=== PATIENT | female | born 1965 | race Caucasian/White ===

== ENCOUNTER 2017-05-03 19:15 | Emergency (ER) | payer SELFPAY ==
[2017-05-03] MEDS ORDERED: NORMAL SALINE 1000 ML 1,000 ML IV ONE (20:20)
[2017-05-03] MEDS ORDERED: ACETAMINOPHEN 325 MG TABLET PO ONE (20:20)
--- NOTE | 2017-05-03 20:21 | ER Document Report ---
ED Medical Screen (RME) - General Chief Complaint: Foot Pain Stated Complaint: SWOLLEN FOOT,FEVER Time Seen by Provider: 05/03/17 20:20 Mode of Arrival: Ambulatory Information source: Patient Notes: Patient reports approximately 3 days of left foot pain swelling and redness. She also believes she has had a fever and chills. She states she has had a similar episode previously with a "spider bite". TRAVEL OUTSIDE OF THE [place] IN LAST 30 DAYS: No Past Medical History Endocrine Medical History: Denies: Hx Diabetes Mellitus Type 1, Hx Diabetes Mellitus Type 2 Renal/ Medical History: Denies: Hx Peritoneal Dialysis Past Surgical History: Reports: Hx Appendectomy - Immunizations Hx Diphtheria, Pertussis, Tetanus Vaccination: No Physical Exam - Vital signs Vitals: Temp Pulse Resp BP Pulse Ox 100.3 F 105 H 18 125/89 H 94 05/03/17 19:28 05/03/17 19:28 05/03/17 19:28 05/03/17 19:28 05/03/17 19:28 Course - Vital Signs Vital signs: Temp Pulse Resp BP Pulse Ox 100.3 F 105 H 18 125/89 H 94 05/03/17 19:28 05/03/17 19:28 05/03/17 19:28 05/03/17 19:28 05/03/17 19:28
[2017-05-03 21:15] LABS: ABSOLUTE LYMPHOCYTES (AUTO) 0.8 10^3/uL (0.5-4.7); ABSOLUTE MONOCYTES (AUTO) 0.9 10^3/uL (0.1-1.4); ABSOLUTE NEUT (AUTO) 8.8 10^3/uL (1.7-8.2); BASOPHILS % (AUTO) 0.4 % (0-2); EOSINOPHILS % (AUTO) 0.1 % (0-6); HEMATOCRIT 43.2 % (36.0-47.0); HEMOGLOBIN 14.9 g/dL (12.0-15.5); HGB HCT DIFFERENCE 1.5; MEAN CORPUSCULAR HEMOGLOBIN 31.6 pg (27.0-33.4); MEAN CORPUSCULAR HGB CONC 34.5 g/dL (32.0-36.0); MEAN CORPUSCULAR VOLUME 92 fl (80-97); MONOCYTES % (AUTO) 8.1 % (3-13); RED BLOOD COUNT 4.71 10^6/uL (3.72-5.28); RED CELL DISTRIBUTION WIDTH 13.1 % (11.5-14.0); SEGMENTED NEUTROPHILS % (AUTO) 83.4 % (42-78); WHITE BLOOD COUNT 10.5 10^3/uL (4.0-10.5)
[2017-05-03 21:20] LABS: VENOUS BLOOD HCO3 24.2 mmol/L (20-32); VENOUS BLOOD PCO2 34.5 mmHg (35-63); VENOUS BLOOD PH 7.46 (7.30-7.42)
[2017-05-03 21:34] LABS: ALANINE AMINOTRANSFERASE 30 U/L (9-52); ALBUMIN 4.7 g/dL (3.5-5.0); ALKALINE PHOSPHATASE 94 U/L (38-126); ANION GAP 12 (5-19); ASPARTATE AMINO TRANSFERASE 21 U/L (14-36); BILIRUBIN,DIRECT 0.5 mg/dL (0.0-0.4); BILIRUBIN,TOTAL 1.1 mg/dL (0.2-1.3); BLOOD UREA NITROGEN 10 mg/dL (7-20); CALCIUM 9.9 mg/dL (8.4-10.2); CARBON DIOXIDE 26 mmol/L (22-30); CHLORIDE 101 mmol/L (98-107); CREATININE RESULT 0.59 mg/dL (0.52-1.25); GLUCOSE 129 mg/dL (75-110); POTASSIUM 3.4 mmol/L (3.6-5.0); SODIUM 138.6 mmol/L (137-145); TOTAL PROTEIN 8.8 g/dL (6.3-8.2)
[2017-05-03 21:40] LABS: APPEARANCE,URINE SLIGHTLY-CLOUDY; BILIRUBIN,URINE NEGATIVE (NEGATIVE); CALCIUM OXALATE CRYSTALS,URINE MODERATE /HPF; GLUCOSE, URINE NEGATIVE (NEGATIVE); KETONES,URINE 20 mg/dL (NEGATIVE); LEUKOCYTE ESTERASE,URINE SMALL (NEGATIVE); NITRITE,URINE NEGATIVE (NEGATIVE); PROTEIN,URINE 30 mg/dL (NEGATIVE); URINE SPECIFIC GRAVITY 1.019
--- NOTE | 2017-05-03 21:56 | RADIOLOGY REPORT (SQ) ---
EXAM DESCRIPTION: FOOT LEFT COMPLETE COMPLETED DATE/TIME: 05/03/2017 9:44 pm REASON FOR STUDY: eval osteo COMPARISON: None. NUMBER OF VIEWS: Three views. TECHNIQUE: AP, lateral and oblique without weight bearing radiographic images acquired of the left f oot. LIMITATIONS: None. FINDINGS: MINERALIZATION: Normal. BONES: No acute fracture or dislocation. No worrisome bone lesions. No significant osteophytes. JOINTS: No erosions. No gypsy-articular osteopenia. No chondrocalcinosis. SOFT TISSUES: No swelling. No calcifications. OTHER: No other significant finding. IMPRESSION: NEGATIVE STUDY OF THE LEFT FOOT. NO EXPLANATION FOR PAIN. TECHNICAL DOCUMENTATION: JOB ID: [id number] [employer]- All Rights Reserved
--- NOTE | 2017-05-03 22:44 | ER Document Report ---
ED General - General Chief Complaint: Foot Pain Stated Complaint: SWOLLEN FOOT,FEVER Time Seen by Provider: 05/03/17 20:20 Mode of Arrival: Ambulatory Notes: Patient is a 52-year-old female without past medical history presents with several days of left foot pain and swelling. States that she believes she may have been bit by several insects several days ago and since that time is developed progressive worsening of erythema and swelling of the left lower extremity involving the foot and ankle. She has a history of similar symptoms in the past of unclear etiology. Notes that she is felt generally unwell since this area started but denies any fever. She has not seen a primary care doctor regarding today's concerns. Nothing improves or worsens her symptoms. She has not noticed any progression of the erythema over the last 48 hours. TRAVEL OUTSIDE OF THE [place] IN LAST 30 DAYS: No - Related Data Allergies/Adverse Reactions: codeine Allergy (Verified 05/03/17 20:22) methocarbamol [From Robaxin] Allergy (Verified 05/03/17 20:22) mushroom Allergy (Verified 05/03/17 20:22) Sulfa (Sulfonamide Antibiotics) Allergy (Verified 05/03/17 20:22) tetracycline Allergy (Verified 05/03/17 20:22) Home Medications: Current Home Medications Ibuprofen 200 mg PO Q6H PRN 05/03/17 [History] Past Medical History - General Information source: Patient - Social History Smoking Status: Never Smoker Chew tobacco use (# tins/day): No Frequency of alcohol use: None Drug Abuse: None Lives with: Family Family History: Reviewed & Not Pertinent Patient has suicidal ideation: No Patient has homicidal ideation: No Endocrine Medical History: Denies: Hx Diabetes Mellitus Type 1, Hx Diabetes Mellitus Type 2 Renal/ Medical History: Denies: Hx Peritoneal Dialysis Past Surgical History: Reports: Hx Appendectomy - Immunizations Hx Diphtheria, Pertussis, Tetanus Vaccination: No Review of Systems - Review of Systems Notes: Constitutional: Negative for fever. HENT: Negative for sore throat. Eyes: Negative for visual changes. Cardiovascular: Negative for chest pain. Respiratory: Negative for shortness of breath. Gastrointestinal: Negative for abdominal pain, vomiting or diarrhea. Genitourinary: Negative for dysuria. Musculoskeletal: Positive for left foot pain Skin: Positive for rash. Neurological: Negative for headaches, weakness or numbness. 10 point ROS negative except as marked above and in HPI. Physical Exam - Vital signs Vitals: Temp Pulse Resp BP Pulse Ox 100.3 F 105 H 18 125/89 H 94 05/03/17 19:28 05/03/17 19:28 05/03/17 19:28 05/03/17 19:28 05/03/17 19:28 Interpretation: Tachycardic Notes: PHYSICAL EXAMINATION: GENERAL: Well-appearing, well-nourished and in no acute distress. HEAD: Atraumatic, normocephalic. EYES: sclera anicteric, conjunctiva are normal. ENT: Moist mucous membranes. NECK: Normal range of motion LUNGS: Normal work of breathing HEART: 2+ DP pulses bilaterally. EXTREMITIES: no pitting or edema. No cyanosis. NEUROLOGICAL: No focal neurological deficits. Moves all extremities spontaneously and on command. PSYCH: Normal mood, normal affect. SKIN: Warm, Dry, normal turgor, there is diffuse erythema and swelling over the dorsal surface of the left foot as well as proximally one half of the medial aspect of the plantar surface of the foot. No fluctuance. Course - Re-evaluation Re-evalutation: 05/03/17 22:39 Patient presents with a globally swollen left foot with the entire area of the dorsum of the foot being erythematous with associated patches of vesicular lesions. Appears to be most consistent with an allergic origin similar to her prior presentation 2015. However cannot definitively exclude an infectious etiology. Patient's vitals are within normal limits, labs obtained in triage are all unremarkable. An x-ray is without any evidence of acute osteomyelitis who wished to have an overall very low clinical suspicion. Will start patient on cephalexin, prednisone, antihistamines and recommend close outpatient follow- up. At this time will discharge with return precautions and follow-up recommendations. Verbal discharge instructions given a the bedside and opportunity for questions given. Medication warnings reviewed. Patient is in agreement with this plan and has verbalized understanding of return precautions and the need for primary care follow-up in the next 24-72 hours. - Vital Signs Vital signs: Temp Pulse Resp BP Pulse Ox 97.8 F 83 18 126/65 H 94 05/03/17 22:48 05/03/17 22:48 05/03/17 22:48 05/03/17 22:48 05/03/17 22:48 - Laboratory Result Diagrams: 05/03/17 20:30 05/03/17 20:30 Laboratory results interpreted by me: 05/03/17 05/03/17 05/03/17 20:30 20:30 20:30 Seg Neutrophils % 83.4 H Lymphocytes % 8.0 L Absolute Neutrophils 8.8 H VBG pH 7.46 H VBG pCO2 34.5 L Potassium 3.4 L Glucose 129 H Direct Bilirubin 0.5 H Total Protein 8.8 H Urine Protein Urine Ketones Urine Urobilinogen Ur Leukocyte Esterase Urine Ascorbic Acid 05/03/17 20:30 Seg Neutrophils % Lymphocytes % Absolute Neutrophils VBG pH VBG pCO2 Potassium Glucose Direct Bilirubin Total Protein Urine Protein 30 H Urine Ketones 20 H Urine Urobilinogen 4.0 H Ur Leukocyte Esterase SMALL H Urine Ascorbic Acid 20 H - Diagnostic Test Radiology reviewed: Image reviewed, Reports reviewed Radiology results interpreted by me: 05/03/17 22:40 Left foot x-ray: No acute infectious process or gas-forming infection Discharge - Discharge Clinical Impression: Left foot pain, Cellulitis of foot, left Condition: Good Disposition: HOME, SELF-CARE Additional Instructions: The rash is likely due to infection vs an allergic reaction of your skin. You need to take the antibiotics, steroids, and antihistamines as prescribed. Do not stop even if the rash goes away until you have completed all the antibiotics. You should also return if you develop fevers with temperature greater than 101, persistent vomiting, worsening pain, or have any other symptoms that are concerning to you. Prescriptions: Cephalexin Monohydrate [Keflex 500 mg Capsule] 500 mg PO Q6H 7 Days #28 capsule Cetirizine HCl [24Hour Allergy] 10 mg PO DAILY #30 tablet Prednisone [Deltasone 20 mg Tablet] 3 tab PO DAILY 5 Days tablet Forms: Return to Work Referrals: LOCALMD,NO [Primary Care Provider] - Follow up as needed
[2017-05-03] MEDS ORDERED: PREDNISONE 20 MG TABLET PO ONE (22:46)
[2017-05-03] MEDS ORDERED: CEPHALEXIN 500 MG CAPSULE PO ONE (22:46)
[2017-05-03 22:49] VITALS: BP 126/65
== END 2017-05-03 23:15 | disposition home or self-care (01) ==
LOC: ER 19:15
DX: L03.116 Cellulitis of left lower limb (principal); E11.9 Type 2 diabetes mellitus without complications; M79.672 Pain in left foot; R00.0 Tachycardia, unspecified; Z88.5 Allergy status to narcotic agent; Z88.1 Allergy status to other antibiotic agents; Z91.018 Allergy to other foods; Z88.2 Allergy status to sulfonamides
CPT/HCPCS: 99283; 36415; 87040; 87086; 85025; 80053; 81001; 82803; 83605; 73630; J7512; J7030

== ENCOUNTER 2020-08-07 22:05 | Emergency (ER) | payer BC ==
[2020-08-07] MEDS ORDERED: ONDANSETRON 4 MG TAB.RAPDIS PO ONE (23:08)
[2020-08-07] MEDS ORDERED: KETOROLAC TROMETHAMINE INJ/PF 30 MG/1 ML SDV IV ONE (23:08)
--- NOTE | 2020-08-07 23:08 | ER Document Report ---
ED Medical Screen (RME) - General Stated Complaint: SEVERE BACK PAIN AND VOMITTING Time Seen by Provider: 08/07/20 23:06 Notes: Patient presents complaining of right flank pain that started 5 PM this evening. Patient does report nausea and vomiting. Patient denies any fever. Patient reports voiding small amounts of urine. I have greeted and performed a rapid initial assessment of this patient. A comprehensive ED assessment and evaluation of the patient, analysis of test results and completion of the medical decision making process will be conducted by additional ED providers. TRAVEL OUTSIDE OF THE [place] IN LAST 30 DAYS: No - Related Data Allergies/Adverse Reactions: codeine Allergy (Verified 05/03/17 20:22) methocarbamol [From Robaxin] Allergy (Verified 05/03/17 20:22) mushroom Allergy (Verified 05/03/17 20:22) Sulfa (Sulfonamide Antibiotics) Allergy (Verified 05/03/17 20:22) tetracycline Allergy (Verified 05/03/17 20:22) Past Medical History Endocrine Medical History: Denies: Hx Diabetes Mellitus Type 1, Hx Diabetes Mellitus Type 2 Renal/ Medical History: Denies: Hx Peritoneal Dialysis Past Surgical History: Reports: Hx Appendectomy - Immunizations Hx Diphtheria, Pertussis, Tetanus Vaccination: No Physical Exam - Vital signs Vitals: Temp Pulse Resp BP Pulse Ox 97.5 F 55 L 22 H 148/86 H 100 08/07/20 22:18 08/07/20 22:18 08/07/20 22:18 08/07/20 22:18 08/07/20 22:18 - Back Back: CVA tenderness - Right Course - Vital Signs Vital signs: Temp Pulse Resp BP Pulse Ox 97.5 F 55 L 22 H 148/86 H 100 08/07/20 22:18 08/07/20 22:18 08/07/20 22:18 08/07/20 22:18 08/07/20 22:18
[2020-08-08 00:27] LABS: HEMATOCRIT 38.5 % (36.0-47.0); HEMOGLOBIN 13.2 g/dL (12.0-15.5); MEAN CORPUSCULAR HEMOGLOBIN 31.1 pg (27.0-33.4); MEAN CORPUSCULAR HGB CONC 34.3 g/dL (32.0-36.0); MEAN CORPUSCULAR VOLUME 91 fl (80-97); PLATELET COUNT 189 10^3/uL (150-450); RED BLOOD COUNT 4.25 10^6/uL (3.72-5.28); RED CELL DISTRIBUTION WIDTH 12.6 % (11.5-14.0); WHITE BLOOD COUNT 14.6 10^3/uL (4.0-10.5)
[2020-08-08 00:36] LABS: ALBUMIN 4.2 g/dL (3.5-5.0); ALKALINE PHOSPHATASE 101 U/L (38-126); ANION GAP 8 (5-19); ASPARTATE AMINO TRANSFERASE 21 U/L (14-36); BILIRUBIN,DIRECT 0.1 mg/dL (0.0-0.4); BILIRUBIN,TOTAL 0.6 mg/dL (0.2-1.3); BLOOD UREA NITROGEN 14 mg/dL (7-20); CALCIUM 9.6 mg/dL (8.4-10.2); CARBON DIOXIDE 26 mmol/L (22-30); CHLORIDE 104 mmol/L (98-107); GLUCOSE 181 mg/dL (75-110); POTASSIUM 3.9 mmol/L (3.6-5.0); TOTAL PROTEIN 7.4 g/dL (6.3-8.2)
[2020-08-08 01:24] LABS: ABSOLUTE LYMPHOCYTES# (MANUAL) 0.1 10^3/uL (0.5-4.7); ABSOLUTE MONOCYTES # (MANUAL) 0.4 10^3/uL (0.1-1.4); BASOPHILS % (MANUAL) 0 % (0-2); EOSINOPHILS % (MANUAL) 0 % (0-6); LYMPHOCYTES % (MANUAL) 1 % (13-45); MONOCYTES % (MANUAL) 3 % (3-13); SEGMENTED NEUTROPHILS % (MAN) 96 % (42-78); TOTAL CELLS COUNTED 100
[2020-08-08 01:25] LABS: ANISOCYTOSIS SLIGHT; OVALOCYTES SLIGHT; PLATELET COMMENT ADEQUATE; TOXIC GRANULATION 1+
[2020-08-08 02:56] LABS: APPEARANCE,URINE SLIGHTLY-CLOUDY; BILIRUBIN,URINE NEGATIVE (NEGATIVE); COLOR,URINE YELLOW; GLUCOSE, URINE NEGATIVE (NEGATIVE); KETONES,URINE 80 mg/dL (NEGATIVE); LEUKOCYTE ESTERASE,URINE TRACE (NEGATIVE); NITRITE,URINE NEGATIVE (NEGATIVE); PROTEIN,URINE 30 mg/dL (NEGATIVE); URINE SPECIFIC GRAVITY 1.026
--- NOTE | 2020-08-08 03:01 | RADIOLOGY REPORT (SQ) ---
EXAM DESCRIPTION: CT ABDOMEN PELVIS WITHOUT IV CONTRAST COMPLETED DATE/TME: 08/08/2020 02:22 CLINICAL HISTORY: 55 years Female, R flank pain Comparison: None. Technique: No contrast. Coronal and sagittal reformat. This exam was performed according to our departmental dose-optimization program, which includes automated exposure control, adjustment of the mA and/or kV according to patient size and/or use of iterative reconstruction technique.[facility]: Dose Right [facility]: CareDose [facility]: Dose Right [facility]: Teradose 4D [facility]: Loyalty Lab LIMITATIONS: None Findings: 0.6 cm bilobed/stacked right proximal ureteral stone with mild right hydronephrosis. 4.6 cm right adnexal cystic lesion. Differential diagnosis includes neoplasm. Recommend pelvic ultrasound Calcification associated with the mitral valve. Imaging note: 1/2 of mitral valve calcifications have been shown to be associated with mitral stenosis. Colonic diverticulosis. 0.2 cm left renal stone. Moderate hiatal hernia. Coronary arterial calcification. Atherosclerotic vascular disease. Renal arterial calcification. 0.5 cm grade 1 L4 anterolisthesis. No ascites. No pneumoperitoneum. Appendectomy. No gross evidence of gallbladder inflammation, hepatobiliary obstruction, or portal vein defect. No bowel obstruction. No evidence of abdominal aortic aneurysm. Mild to moderate multilevel, multifactorial spinal canal stenoses. Unenhanced lower thorax, abdominopelvic structures, and musculoskeleton appear otherwise grossly unremarkable. Impression: 1. 0.6 cm bilobed/stacked right proximal ureteral stone with low-grade obstruction. 2. Calcification associated with the mitral valve. Imaging note: 1/2 of mitral valve calcifications have been shown to be associated with mitral stenosis. 3. 4.6 cm right adnexal cystic lesion. Differential diagnosis includes neoplasm. Recommend pelvic ultrasound 4. Moderate hiatal hernia. 5. Coronary arterial calcification. Renal arterial calcification.
[2020-08-08] MEDS ORDERED: MORPHINE SULFATE 10 MG/ML INJ IV ONE (07:52)
[2020-08-08] MEDS ORDERED: NORMAL SALINE 1000 ML 1,000 ML IV ONE (07:52)
[2020-08-08] MEDS ORDERED: METOCLOPRAMIDE HCL INJ/PF 10 MG/2 ML SDV IV ONE (07:53)
--- NOTE | 2020-08-08 07:58 | ER Document Report ---
ED General - General Chief Complaint: Flank Pain Stated Complaint: SEVERE BACK PAIN AND VOMITTING Time Seen by Provider: 08/07/20 23:06 TRAVEL OUTSIDE OF THE [place] IN LAST 30 DAYS: No - HPI Notes: Chief complaint: Right flank pain and vomiting History of present illness: 55-year-old female with history of chronic pain syndrome related to osteoarthritis and disc disease of her upper and lower back but no known prior history of renal stones who presents now with right flank di scom[place] and intermittent nausea and vomiting. Symptoms were of sudden onset around 5 PM yesterday. Intermittent since then. No fever or chills. Presently rates pain 10/10. Radiates down to suprapubic area. - Related Data Allergies/Adverse Reactions: codeine Allergy (Verified 05/03/17 20:22) methocarbamol [From Robaxin] Allergy (Verified 05/03/17 20:22) mushroom Allergy (Verified 05/03/17 20:22) Sulfa (Sulfonamide Antibiotics) Allergy (Verified 05/03/17 20:22) tetracycline Allergy (Verified 05/03/17 20:22) Past Medical History - General Information source: Patient, Relative - Social History Smoking Status: Current Every Day Smoker Chew tobacco use (# tins/day): No Frequency of alcohol use: Occasional Drug Abuse: None Family History: Reviewed & Not Pertinent - Past Medical History Cardiac Medical History: Reports: None Pulmonary Medical History: Reports: None Endocrine Medical History: Denies: Hx Diabetes Mellitus Type 1, Hx Diabetes Mellitus Type 2 Renal/ Medical History: Denies: Hx Kidney Stones, Hx Peritoneal Dialysis Musculoskeletal Medical History: Reports Hx Arthritis, Reports Hx Sciatica Past Surgical History: Reports: Hx Appendectomy - Immunizations Hx Diphtheria, Pertussis, Tetanus Vaccination: No Review of Systems - Review of Systems Notes: Constitutional: Negative for fever. HENT: Negative for sore throat. Eyes: Negative for visual changes. Cardiovascular: Negative for chest pain. Respiratory: Negative for shortness of breath. Gastrointestinal: As per HPI. Genitourinary: As per HPI. No dysuria or gross hematuria. Musculoskeletal: As per HPI. Skin: Negative for rash. Neurological: Negative for headaches, focal weakness. Chronic numbness of both hands related to compression neuropathy associated with cervical disc disease. 10 point ROS negative except as marked above and in HPI. Physical Exam - Vital signs Vitals: Temp Pulse Resp BP Pulse Ox 97.5 F 55 L 22 H 148/86 H 100 08/07/20 22:18 08/07/20 22:18 08/07/20 22:18 08/07/20 22:18 08/07/20 22:18 - Notes Notes: GENERAL: Female patient of approximately stated age appearing restless and in moderate pain. SKIN: Good turgor no rashes. HEAD: Normocephalic atraumatic. EYES: PERRLA. EOMI. Conjunctivae and sclerae clear. EARS: CANALS AND TMS CLEAR. NOSE: CLEAR. MOUTH: Moist mucosa. Good dentition. No stridor or edema. No drooling. NECK: Supple. No masses or thyromegaly. No adenopathy. Carotids 2+ without bruits. No JVD. BACK: Mild right CVA tenderness. CHEST: Respirations unlabored. Breath sounds clear and symmetrical. HEART: Regular rhythm. No murmur gallop or rub. ABDOMEN: Soft nontender without masses, organomegaly or rebound. Bowel sounds normally active. No bruits. GENITALIA: Deferred. EXTREMITIES: No edema. No calf tenderness. Cap refill less than 1.5 seconds. Dorsalis pedis and posterior tibial pulses 3+ and symmetrical. NEUROLOGICAL: GCS 15. Alert and oriented x3. Normal gait. Fluent speech. Cranial nerves II through XII intact. Sensorimotor and cerebellar normal. Normal tone. PSYCHIATRIC: Appropriate affect. Course - Re-evaluation Re-evalutation: 08/08/20 10:12 55-year-old female with new onset what sounded like right-sided renal colic started around 5 PM yesterday. 6 mm stone mid right ureter with mild obstruction confirmed by CT. Creatinine is normal. No fever. Urinalysis positive for microscopic hematuria. Symptoms controlled with IV morphine, IV Zofran and IV normal saline. Patient is tolerating oral fluids and appears stable for outpatient urology follow-up. Findings, clinical impression and plan of treatment have been discussed with patient/family. Understanding of current findings and recommendations has been acknowledged by them and there is agreement regarding disposition and follow-up. - Vital Signs Vital signs: Temp Pulse Resp BP Pulse Ox 98.0 F 58 L 18 136/82 H 99 08/08/20 07:47 08/08/20 07:47 08/08/20 07:47 08/08/20 07:47 08/08/20 07:47 - Laboratory Results Result Diagrams: 08/07/20 23:57 08/07/20 23:57 Laboratory Results Interpreted: 08/07/20 08/07/20 08/08/20 23:57 23:57 02:40 WBC 14.6 H Seg Neuts % (Manual) 96 H Lymphocytes % (Manual) 1 L Abs Neuts (Manual) 14.0 H Abs Lymphs (Manual) 0.1 L Glucose 181 H Urine Protein 30 H Urine Ketones 80 H Urine Blood LARGE H Urine Urobilinogen 2.0 H Ur Leukocyte Esterase TRACE H Critical Laboratory Results Reviewed: Yes Attending or Supervising Physician who Reviewed Labs: SREE STEPHENSON - Radiology Results Radiology Results Interpreted: 08/08/20 08:00 6 mm stone proximal right ureter with mild obstruction per radiologist Critical Radiology Results Reviewed: Yes Attending or Supervising Physician who Reviewed Radiology: SREE STEPHENSON Discharge - Discharge Clinical Impression: Ureterolithiasis with renal colic right Condition: Stable Disposition: HOME, SELF-CARE Additional Instructions: Kidney Stone You are passing or have passed a kidney stone. These stones are usually due to increased calcium or uric acid concentrations in your urine. Stones within the kidney itself are not painful. The pain occurs as the stone leaves the kidney to pass down the long tube, called the ureter, leading to the bladder. If the stone is small, it will usually pass by itself. Most patients can pass the stone at home. You will usually receive medications for pain, nausea or vomiting, and sometimes a medication to assist in passing the kidney stone. However, if the pain is very severe or if vomiting prevents you from taking oral pain medications, you may need to return for further treatment. Drink three or four quarts of fluids per day. You will be given pain medication (if needed) and urine strainers. Strain all your urine to see if the stone passes. If your doctor has asked you to bring the stone in for analysis, return with the stone once it has passed. Return if pain or vomiting become severe, if you develop a high fever, if you are unable to pass your urine, or if other unusual symptoms occur. You have been provided the name of a urologist for follow-up within the next 5 to 7 days. Increase oral fluids. He work note for the next 3 days has been provided for you. Take prescription medications as instructed. Return here as needed for new or worsening symptoms: Pain that is worsening or unimproved Uncontrolled vomiting High fever or shaking chills Overall worsening Prescriptions: Tamsulosin HCl [Flomax 0.4 mg Cap.sr] 0.4 mg PO DAILY #7 cap.sr.24h Oxycodone HCl/Acetaminophen [Percocet 5-325 mg Tablet] 1 tab PO Q4H PRN #15 tablet PRN Reason: Ondansetron [Zofran Odt 4 mg Tablet] 1 - 2 tab PO Q4H PRN #15 tab.rapdis PRN Reason: For Nausea/Vomiting Referrals: NELSON VARNER MD [NO LOCAL MD] - Follow up as needed
[2020-08-08 11:09] VITALS: BP 123/62
== END 2020-08-08 11:09 | disposition home or self-care (01) ==
LOC: ER 22:05
DX: N13.2 Hydronephrosis with renal and ureteral calculous obstruction (principal); M54.9 Dorsalgia, unspecified; R11.10 Vomiting, unspecified; F17.200 Nicotine dependence, unspecified, uncomplicated; Z88.6 Allergy status to analgesic agent
CPT/HCPCS: 99285; 96361; 96374; 96375; 36415; 83690; 85025; 80053; 81001; 74176; J2765; J2270; J7030